=== PATIENT | male | born 1950 | race Caucasian/White ===

== ENCOUNTER → 2016-09-28 | Outpatient (CLI) | payer OTHER ==
--- NOTE | 2016-09-28 13:37 | DIAGNOSTIC IMAGING REPORT ---
LUMBAR SPINE W/O CONTRAST HISTORY: Pain INGUINAL PAIN, ARTHROPATHY LUMBAR FACET JOINT, THORACIC PAIN TECHNIQUE: Multiplanar multisequence MRI of the lumbar spine was performed without the use of contrast. COMPARISON: None. FINDINGS: For the purpose of the report the L5-S1 disc space will be located on axial image 23 of 25. Moderate degenerative disc change throughout. Vertebral body stature is unremarkable. L1-L2: No significant central canal or neural foraminal narrowing. L2-L3: No significant central canal or neural foraminal narrowing. L3-L4: Mild broad-based disc bulge. Mild impact anterior thecal sac. L4-L5: Mild broad-based disc bulge. Moderate narrowing of the neuroforamina bilaterally. No significant impact upon the thecal sac. L5-S1: Lateral disc bulges narrowing the right as well as left neuroforamina. No impact upon the thecal sac. IMPRESSION: 1. Bulging discs at L4-L5 and L5-S1 narrowing the neuroforamina bilaterally at both levels. 2. Mild broad-based central disc bulge L3-L4. 3. Moderate degenerative change of the posterior facets and elements. 4. No evidence for major disc herniation or significant component of spinal stenosis. The above report was generated using voice recognition software. It may contain grammatical, syntax or spelling errors. Electronically signed by: Edgar Wyatt M.D. 09/28/2016 1:36 PM Dictated Date/Time: 09/28/2016 1:31 PM
== END | disposition home or self-care (01) ==
LOC: C.MRIBC 12:38
PROVIDERS: ATTEND Physician Assistant Medical
DX: M46.96 Unspecified inflammatory spondylopathy, lumbar region (principal); R10.2 Pelvic and perineal pain; M99.79 Connective tissue and disc stenosis of intervertebral foramina of abdomen and other regions; M54.9 Dorsalgia, unspecified; M51.27 Other intervertebral disc displacement, lumbosacral region

== ENCOUNTER → 2016-10-28 | Outpatient (CLI) | payer OTHER ==
--- NOTE | 2016-10-28 13:51 | DIAGNOSTIC IMAGING REPORT ---
MRI THORACIC SPINE WITHOUT CLINICAL HISTORY: THORACIC BACK PAIN PRIOR STUDIES: None TECHNIQUE: MR scanning of the thoracic spine was performed using multiple pulse sequences. No gadolinium was administered. FINDINGS: The thoracic discs are unremarkable without evidence of herniation. Vertebral bodies are normal in height and alignment and bone marrow signal is unremarkable. The spinal cord is unremarkable. IMPRESSION: No significant abnormality is seen in the MR scan of the thoracic spine. Electronically signed by: Darryl Celis M.D. 10/28/2016 1:49 PM Dictated Date/Time: 10/28/2016 1:46 PM
== END | disposition home or self-care (01) ==
LOC: C.MRIBC 12:42
PROVIDERS: ATTEND Family Medicine
DX: M54.9 Dorsalgia, unspecified (principal)

== ENCOUNTER 2022-06-15 08:47 | Inpatient (IN) ==
--- NOTE | 2022-06-03 09:08 | Anesthesiology Consultation ---
Date of Service June 03, 2022 Assessment & Plan (1) Encounter for pre-operative examination: Chart Review Pt requiring admission post operatively. Plan for recheck with JORGE CARABALLO due to possibility that patient may have a roommate. OR aware. Blum order placed History Surgery Operation Date: 06/06/22 07:45 Proposed Procedures p L4-L5 Decompression and Fusion, Spinal Cord Monitoring - Ernesto Malone DO Height/Weight Height: 5 ft 9 in Weight: 83.007 kg Allergies Allergy/AdvReac Type Severity Reaction Status Date / Time No Known Allergies Allergy Verified 05/26/22 14:59 Medications Home Medications Medication Instructions Recorded Confirmed Last Taken lovastatin 40 mg tablet 40 mg PO QPM 05/26/22 05/26/22 Unknown Past Medical History Medical History Bulging lumbar disc High cholesterol History of colon polyps Loss of [facility] SUSPECTED TO BE RELATED TO BACK ISSUE CARDIO EVAL RECOMMENDED D/T SKIPPED BEATS AND HEART RATE IN 40'S ( PT REPORTS HIS HEART RATE NORMALLY RUNS IN THE 40'S) RECENT HEART MONITOR ORDERED THROUGH DR MAZARIEGOS'S OFFICE/PT DOES NOT KNOW RESULTS. UPCOMING CARDIO RON JUNE 02 2022. Skipped beats ONGOING FOR YRS/ASYMPTOMATIC/RECENT HEART MONITOR (UNKNOWN RESULTS AT THIS TIME) Past Family History Family History Other Family history of colon cancer in father Family history of colon cancer in mother Past Surgical History Surgical History History of cataract surgery R&L History of colonoscopy History of rotator cuff surgery RIGHT History of surgery FOR LEFT LEG FX /HARDWARE History of tonsillectomy Social History Smoking Status: Never smoker Do You Dip or Chew Tobacco: No alcohol intake frequency: holidays/special occasions only Hx Substance Use: No substance use type: does not use
--- NOTE | 2022-06-13 14:16 | Anesthesiology Consultation ---
Date of Service June 13, 2022 Assessment & Plan (1) Encounter for pre-operative examination: - awaiting cardiology clearance. - Case discussed in detail with Dr. Marquez who advised awaiting cardiology clearance, nothing additional needed at this time. - PCP pre-op evaluation 06/03/22: "...JANET for bradycardia...discharge summary suggests looking into sleep apnea but he declines testing for this because he refuses to wear a cpap...also suggested in D/C summary to have holter monitor and stress test to look for chorionotropic response...agreeable to holter monitor but not stress test...advised to obtain Holter monitor, stress test...sleep study to look for sleep apnea...only agreed to the holter monitor...feel that cardiology clearance should be obtained before undergoing surgery..." - COVID screening: Per employment consultant on 05/26/2022: Travel screen negative, no known COVID-19 positive contacts or current COVID-19 related symptoms in past 2 weeks. To surgeon's discretion if preop COVID testing is needed. Chart Review Chart Review: Pending: Refer to Additional Notes / Consult section and Patient NOT seen in Pre Admission Testing History Surgery Operation Date: 06/06/22 07:45 Proposed Procedures p L4-L5 Decompression and Fusion, Spinal Cord Monitoring - Ernesto Malone DO Operation Date: 06/15/22 10:35 Proposed Procedures p L4-L5 Decompression and Fusion, Spinal Cord Monitoring - Ernesto Malone DO Height/Weight Height: 5 ft 9 in Weight: 83.007 kg Allergies Allergy/AdvReac Type Severity Reaction Status Date / Time No Known Allergies Allergy Verified 05/26/22 14:59 Medications Home Medications Medication Instructions Recorded Confirmed Last Taken lovastatin 40 mg tablet 40 mg PO QPM 05/26/22 05/26/22 Unknown Past Medical History Medical History Bulging lumbar disc High cholesterol History of colon polyps Loss of balance ED VISIT FOR [facility], APRIL 29 2022 SUSPECTED TO BE RELATED TO BACK ISSUE CARDIO EVAL RECOMMENDED D/T SKIPPED BEATS AND HEART RATE IN 40'S ( PT REPORTS HIS HEART RATE NORMALLY RUNS IN THE 40'S) RECENT HEART MONITOR ORDERED THROUGH DR MAZARIEGOS'S OFFICE/PT DOES NOT KNOW RESULTS. UPCOMING CARDIO RON JUNE 02 2022. Skipped beats ONGOING FOR YRS/ASYMPTOMATIC/RECENT HEART MONITOR (UNKNOWN RESULTS AT THIS TIME) Past Family History Family History Other Family history of colon cancer in father Family history of colon cancer in mother Past Surgical History Surgical History History of cataract surgery R&L History of colonoscopy History of rotator cuff surgery RIGHT History of surgery FOR LEFT LEG FX /HARDWARE History of tonsillectomy Social History Smoking Status: Never smoker Do You Dip or Chew Tobacco: No alcohol intake frequency: holidays/special occasions only Hx Substance Use: No substance use type: does not use Testing Laboratory Results 05/30/2022 WBC: 5.9 H/H: 15/47 PLATELETS: 174 SODIUM: 136 POTASSIUM: 3.7 CHLORIDE: 104 CO2: 28 BUN: 16 CREATININE: 1 GLUCOSE: 123 PT: 12 PTT: 33 INR: 1 UA: yellow, clear, negative Other Testing Holter monitor 06/03/22 The prevailing rhythm is sinus bradycardia with the heart rate varying between 21 and 101 with an average of 50 bpm, longest recorded R-R interval is 3.7 seconds and coincides with the presence of sinus bradycardia with junctional escape at 6:22 in the morning Ventricular ectopy accounted for approximately 8% of the total beats monitored. These were in the form of isolated PVCs, couplets, rare short runs and runs of ventricular bigeminy and trigeminy Rare isolated PACs, very rare supraventricular couplets, a supraventricular quadruplet and a short run of supraventricular trigeminy
[~2022-06-15 08:47] MED LIST: ACETAMINOPHEN 500 MG TAB PO SCH; CeleBREX 200 MG CAP PO SCH; GABAPENTIN 300 MG CAP PO SCH; LR 15ML/HR IV SCH; ceFAZolin 2000MG 2,000 MG/15 ML SYR IV SCH
--- NOTE | 2022-06-15 09:28 | XRay Report ---
TWO VIEW CHEST CLINICAL HISTORY: Preoperative examination. FINDINGS: PA and lateral chest radiographs are obtained. No prior studies are available for compariso n at the time of dictation. The heart is enlarged noting atherosclerotic calcification of the thoraci c aorta. The pulmonary vasculature is noncongested. Subpleural reticulation is seen throughout both l ungs. Scarring/atelectasis is present at the lung bases. No airspace consolidation or pleural effusio n is identified. There is no pneumothorax. The skeletal structures are osteopenic. The bony thorax ap pears intact. IMPRESSION: 1. Cardiomegaly with no active disease in the chest. 2. Changes of chronic lung disease as above. Consider nonemergent follow-up with pulmonology. ACT 112: Negative or not required by law. Electronically signed by: Adam Martinez M.D. 06/15/2022 9:26 AM
[2022-06-15] MEDS ORDERED: ePHEDrine sulfate 50 MG/ML AMP IV PRN (09:49)
[2022-06-15] MEDS ORDERED: ATROPINE SULFATE 0.1 MG/ML 10ML SYR IV PRN (09:49)
[2022-06-15] MEDS ORDERED: ONDANSETRON INJ 2 MG/ML 2 ML VIAL IV PRN ×2 (09:49→13:41)
[2022-06-15] MEDS ORDERED: fentaNYL citrate PF 100 MCG/2 ML VIAL ONE (10:05)
--- NOTE | 2022-06-15 10:23 | History & Physical Bridge Note ---
Date of Service June 15, 2022 History & Physical Bridge Note I have examined the patient, reviewed the History & Physical and in the interval since the performance of the History & Physical I have noted the following changes of clinical significance: no changes noted
--- NOTE | 2022-06-15 10:24 | History & Physical Report ---
Date of Service June 15, 2022 Assessment & Plan (1) Lumbar disc herniation with radiculopathy: Plan: L4-L5 decompression and fusion History of Present Illness Chief Complaint: Right leg pain Primary Care Provider: Arvind Koenig This is a 71-year-old male who presents with worsening chronic consistent right leg pain and failing since course of nonoperative care is here for surgical intervention. Allergies Allergy/AdvReac Type Severity Reaction Status Date / Time No Known Allergies Allergy Verified 06/15/22 09:35 Home Medications Medication Instructions Recorded Confirmed Type lovastatin 40 mg tablet 40 mg PO QPM 05/26/22 06/15/22 History Past Med/Surg History Medical History Bulging lumbar disc High cholesterol History of colon polyps Loss of balance ED VISIT FOR [facility], APRIL 29 2022 SUSPECTED TO BE RELATED TO BACK ISSUE CARDIO EVAL RECOMMENDED D/T SKIPPED BEATS AND HEART RATE IN 40'S ( PT REPORTS HIS HEART RATE NORMALLY RUNS IN THE 40'S) RECENT HEART MONITOR ORDERED THROUGH DR KOENIG'S OFFICE/PT DOES NOT KNOW RESULTS. UPCOMING CARDIO RON JUNE 02 2022. Skipped beats ONGOING FOR YRS/ASYMPTOMATIC/RECENT HEART MONITOR (UNKNOWN RESULTS AT THIS TIME) Surgical History History of cataract surgery R&L History of colonoscopy History of rotator cuff surgery RIGHT History of surgery FOR LEFT LEG FX /HARDWARE History of tonsillectomy Family History Other Family history of colon cancer in father Family history of colon cancer in mother Social History Smoking Status: Never smoker Do You Dip or Chew Tobacco: No; Hx Substance Use: No Preferred Language: Pakistani Communication Ability: Effective Mold Inspector Required: No Beliefs That Will Affect Care: None Current Living Situation: Spouse and Family Current Living Situation Comment: , DAUGHTER AND GRANDAUGTHER Other Information That Helps Us Care for You: No Feels Safe at Home: Yes Assistive Devices: None Physical Exam Physical Exam: Patient is alert and oriented Heart regular rhythm Lungs clear
[2022-06-15] MEDS ORDERED: BUPIVACAINE/EPINEPHRINE 0.25% 1:200,000 30 ML VIAL ONE (10:34)
[2022-06-15] MEDS ORDERED: ceFAZolin 330 MG/ML 1 GM VIAL ONE (10:34)
[2022-06-15] MEDS ORDERED: LIDOCAINE 2% MPF LOCAL 5 ML VIAL ONE (11:08)
[2022-06-15] MEDS ORDERED: DEXAMETHASONE SOD INJ 4 MG/ML VIAL ONE (11:08)
[2022-06-15] MEDS ORDERED: PROPOFOL IV EMULSION 10 MG/ML 20 ML VIAL IV ONE (11:08)
[2022-06-15] MEDS ORDERED: ROCURONIUM BROMIDE 10 MG/ML 5 ML VIAL IV ONE ×4 (11:09→11:21)
[2022-06-15] MEDS ORDERED: FLOSEAL HEMOSTATIC MATRIX 10ML TOP ONE (11:46)
[2022-06-15] MEDS ORDERED: ePHEDrine sulfate 50 MG/ML AMP ONE (12:05)
--- NOTE | 2022-06-15 12:24 | Operative Report ---
Post Operative Report Pre & Post Diagnosis Operation Date: 06/15/22 10:35 Pre-Op Diagnosis: Lumbar disc herniation with radiculopathy Lumbar spinal stenosis with radiculopathy Post-Op Diagnosis: Same I identified the patient and participated in the time-out.: Yes Procedure Operation Date: 06/15/22 10:35 Actual Procedures #1 lumbar decompression bilateral medial facetectomies and foraminotomies L3-L4 L4-5 per #2 posterior spinal fusion L4-L5. #3 placement posterior instrumentation L4-L5. #4 interbody fusion L4-L5 #5 placement Spira 14 x 26 mm cage at L4-5. #6 placement locally harvested morselized autograft in the posterior gutters. #7 placement of I factor commended the test and interbody space and posterior lateral gutters. Surgeon Ernesto Malone, Planning Official Keyanna Barahona Estimated Blood Loss 150 Findings Consistent with Post-Op Diagnosis Specimens None Indications This is a 71-year-old male who presents above-mentioned diagnosis of failed course of nonoperative care is here for surgical invention. Description of Procedure Patient was met with identified informed consent obtained. Patient was then taken to the operative suite underwent patient placed in a prone position on the Carlos table on top of the Nicolas frame. All bony promises well-padded eyes inspected to ensure no external pressure placed upon the. This point the lumbar spine was prepped and draped in a sterile fashion. Sharp dissection with the assistance of Bovie cautery was formed down to and exposing the lamina transverse processes of L4-L5 bilaterally. From caudal to cephalad fashion complete laminectomy of L4 partial laminectomy of L3 was performed including complete facetectomy at L4-5 on the right with evidence of significant foraminal stenosis and bony osteophytes as well as disc protrusion within the foramen. After complete decompression pedicle screws were placed in L4 and L5 bilaterally with assistance of fluoroscopy and appropriate sized charles placed. By way of a trans foraminal approach on the right a complete discectomy was performed endplates curetted to subcortical bleeding bone and a 14 x 26 mm Spira cage with I factor tapped in position. The rods were then locked in final position bilaterally. The transverse processes of L4-L5 burred to subcortically bone. I factor amount of the test and locally harvested morselized autograft placed in the posterior gutters. 15 round COREY drain inserted. The incision was then closed with 1 Vicryl the fascia 2-0 Vicryl subcutaneously and 4 Monocryl for final skin closure. Steri-Strips sterile dressings placed. Patient awakened and taken to PACU stable condition. Please note spinal cord monitoring was uti lized at the procedure no changes noted. Lastly Keyanna Barahona was present at the entire procedure and all the patient positioning complex portions of the surgery and final skin closure. I attest to the content of the Intraoperative Record and any orders documented therein. Any exceptions are noted below.
[2022-06-15] MEDS ORDERED: GLYCOPYRROLATE 0.2 MG/ML VIAL ONE ×2 (12:26)
[2022-06-15] MEDS ORDERED: NEOSTIGMINE METHYLSULFATE 1 MG/ML 10ML VIAL ONE (12:26)
[2022-06-15] MEDS: fentaNYL citrate PF 100 MCG/2 ML VIAL IV PRN ×2 (12:57→13:02)
--- NOTE | 2022-06-15 13:20 | Anesthesiology Progress Note ---
Date of Service June 15, 2022 Anesthesia Post Procedure Vital Signs Vital Signs: Temp Pulse Resp BP Pulse Ox O2 Del Method O2 Flow Rate 06/15/22 13:15 66 15 131/82 99 Nasal Cannula 2 06/15/22 13:05 97.3 F L 55 L 12 159/88 H 100 Nasal Cannula 2 06/15/22 12:55 97.3 F L 59 L 14 140/80 98 Nasal Cannula 2 06/15/22 12:45 97.3 F L 69 18 136/80 100 Nasal Cannula 3 06/15/22 12:37 97.3 F L 57 L 12 157/93 H 99 Nasal Cannula 3 06/15/22 09:20 97.7 F 61 18 166/69 H 98 Room Air Pain Intensity Lower Back: Pain Intensity: 2 Transfer of Care Handoff Completed per policy Notes Mental Status: alert / awake / arousable and participated in evaluation Patient Amnestic to Procedure: Yes Nausea / Vomiting: adequately controlled Pain: adequately controlled Airway Patency, RR, SpO2: stable & adequate BP & HR: stable & adequate Hydration State: stable & adequate Anesthetic Complications: no major complications apparent and Pt Satisfied with anesthetic care
[2022-06-15] MEDS ORDERED: HYDROmorphone INJ 0.5 MG/0.5 ML SYR IV PRN (13:41)
[2022-06-15] MEDS ORDERED: ACETAMINOPHEN 500 MG TAB PO PRN (13:41)
[2022-06-15] MEDS ORDERED: METOCLOPRAMIDE HCL INJ 5 MG/ML 2 ML VIAL IV PRN (13:41)
[2022-06-15] MEDS ORDERED: LORazepam 2 MG/1 ML VIAL IV PRN (13:41)
[2022-06-15] MEDS ORDERED: MAGNESIUM HYDROXIDE SUSP 30 ML UDC PO PRN (13:41)
[2022-06-15] MEDS ORDERED: FAMOTIDINE 20 MG TAB PO PRN (13:41)
[2022-06-15] MEDS ORDERED: NALOXONE HCL 0.4 MG/1 ML VIAL/CARP IV PRN (13:41)
[2022-06-15] MEDS ORDERED: DO NOT ADMINISTER FLU VACCINE PRN (13:41)
[2022-06-15] MEDS ORDERED: hydrOXYzine HCl 25 MG TAB PO PRN (13:41)
[2022-06-15] MEDS ORDERED: DO NOT ADMINISTER PNEUMOCOCCAL VACCINE PRN (13:41)
[2022-06-15] MEDS ORDERED: LORazepam 0.5 MG TAB PO PRN (13:41)
[2022-06-15] MEDS ORDERED: diphenhydrAMINE Capsule 25 MG CAP PO PRN (13:41)
[2022-06-15] MEDS ORDERED: PROMETHAZINE HCL 12.5 MG in SODIUM CHLORIDE 0.9% 50 ML IV PRN (13:41)
[2022-06-15] MEDS ORDERED: ONDANSETRON 4 MG OD TAB PO PRN (13:41)
[2022-06-15] MEDS ORDERED: ACETAMINOPHEN 1,000 MG/100 ML VIAL IV PRN (13:41)
[2022-06-15] MEDS ORDERED: bisacodyL 10 MG SUPP PR PRN (13:41)
[2022-06-15] MEDS ORDERED: SOD PHOSPHATE/SOD BIPHOSPHATE ENEMA 132 ML BTL PR PRN (13:41)
[2022-06-15] MEDS ORDERED: SODIUM CHLORIDE 0.9% 1000ML 1,000 ML IV SCH (13:41)
[2022-06-15] MEDS ORDERED: traMADol HCL 50 MG TABLET PO PRN (13:41)
--- NOTE | 2022-06-15 13:50 | Fluoroscopy Report ---
FL lumbar spine 2-3V CLINICAL HISTORY: L4-L5 DECOMPRESSION AND FUSION COMPARISON STUDY: None. FLUOROSCOPY TIME: 25 seconds FLUOROSCOPY IMAGES: 2 Ka,r: 23.4 mGy FINDINGS: Posterior decompression and fusion at L4-L5 with pedicle screws and rods. A disc spacer is noted. The hardware appears intact. IMPRESSION: Fluoroscopic assistance as above. ACT 112: Negative or not required by law. Electronically signed by: Titi Gaming M.D. 06/15/2022 1:49 PM
[2022-06-15] MEDS: oxyCODONE HCL IR 5 MG TAB (IMMEDIATE RELEASE) PO PRN (14:19)
[2022-06-15] MEDS: LACTATED RINGER'S 1,000 ML IV SCH ×2 (14:24→20:18)
[2022-06-15] MEDS: HYDROmorphone INJ 1 MG/ML SYRINGE IV PRN (15:15)
--- NOTE | 2022-06-15 15:31 | Consultation ---
Date of Consultation June 15, 2022 Assessment & Plan (1) Lumbar disc herniation with radiculopathy: (2) HLD (hyperlipidemia): (3) Bradycardia: Plan 71-year-old male who presented to the [facility] for a planned surgical procedure decompression and fusion under the care of Dr. Malone after failed conservative measures. Additional past medical history includes HLD. Patient receives all health care through the [facility]. Lumbar disc herniation with radiculopathy: POD# 0 s/p decompression and fusion surgery with Dr. Malone. EBL 150mL Monitor H&H; no baseline labs for comparison. CBC ordered for AM Per ortho for pain control, wound care, anticoagulation and activities. continue incentive spirometry PT/OT when appropriate HLD: Takes Atorvastatin; continue Bradycardia: Recent admission 05/01-05/03 at [facility] for bradycardia Holter monitor planned as OPT They suspect SAFIA related; will obtain nocturnal oximetry study while here Disposition: PCP: [facility] Code Status: Full Code VTE Prophylaxis: SCDS and TEDS per admitting surgical team I spent a total of 34 minutes coordinating, documenting, and providing care for this patient excluding time spent in the performance of separately billed services. All of the aforementioned completed while collaborating with the assigned attending physician for a full treatment plan. Please see their addendum for further details. Supervising Physician Co-Signing Physician Notes Patient is a 71-year-old male with history of hyperlipidemia, obstructive sleep apnea currently not using CPAP, lumbar spinal stenosis with radiculopathy and no other significant past medical history was consulted for postop medical management. Patient is doing well postoperatively. Denies any chest pain, dyspnea, dizziness, nausea, abdominal pain. Also denies any significant pain at surgical site. Please review HPI for complete details. On exam patient is moderately built and nourished, no apparent distress, normocephalic atraumatic, EOMI, normal breath sounds, clear to auscultation, S1-S2, no murmur, no pedal edema, abdomen soft, nontender, normal bowel sounds, alert, awake, oriented, grossly no focal deficits,back+ surgical site in dressing, drain. Lumbar disc herniation with radiculopathy and lumbar spinal stenosis with radiculopathy S/P lumbar surgery by Dr. Malone. Pain control, DVT prophylaxis, activity as per primary team. Monitor for postop anemia. Bowel regimen to prevent constipat ion. Will obtain nocturnal oximetry study given history of bradycardia, obstructive sleep apnea. Recommended sleep study as outpatient. I personally reviewed the record. Patient is interviewed and examined at bedside. Patient's care is coordinated with [facility]. Please refer to the documentation above for details of patient's presentation and for discussion of other issues. History of Present Illness Requesting Physician: Dr. Malone Reason for Consultation: post-operative medical management Attending Physician: Ernesto Malone, History of Present Illness Mr. Ratliff is a 71 year old male that presented to the [facility] to undergo an elective surgical decompression and fusion under the care of Dr. Malone after failed conservative management for disc herniation L4-L5. Patient has a PMH that includes HLD. Pt typically receives his care within the [facility] and was medically cleared for surgery through their system. Pt denies JORDAN, dizziness, SOB, CP, palpitations, N/V/D, numbness or tingling in extremities. Patient had just received 1 dose of Dilaudid prior to my examination. Patient is accompanied by his at bedside. Patient is AAOx4 and able to answer questions appropriately but is drowsy. Patient has tolerated water well and is advancing his diet. Patient denies any numbness and tingling in lower extremities. Patient has COREY drain x1 fransisco red blood output. EBL 150 mL no baseline hemoglobin from outpatient records to review will trend CBC in a.m. as ordered. Pt is normotensive and slightly bradycardic HR 58. This is not new for him and he is asymptomatic. EKG in AM. He had a recent admission at [facility] from 05/01-05/03 for evaluation of bradycardia. He was advised to proceed with further evaluation for sleep apnea and holter monitor. Orthopa[facility] Hospitalist Service greatly appreciates this consultation. We are available 12/09 for further questions or assistance. Please see A/P for further details. Allergies Allergy/AdvReac Type Severity Reaction Status Date / Time No Known Allergies Allergy Verified 06/15/22 09:35 Home Medications Medication Instructions Recorded Confirmed Type lovastatin 40 mg tablet 40 mg PO QPM 05/26/22 06/15/22 History oxycodone 5 mg tablet 5 mg PO DAILY PRN pain #30 tabs 06/15/22 06/15/22 Rx tramadol 50 mg tablet 50 mg PO Q6H PRN pain, moderate 06/15/22 06/15/22 Rx #30 tabs Patient History Medical History (Updated 06/15/22 @ 15:54 by NIURKA Piña) Bradycardia Bulging lumbar disc High cholesterol History of colon polyps HLD (hyperlipidemia) Loss of balance [facility] SUSPECTED TO BE RELATED TO BACK ISSUE CARDIO EVAL RECOMMENDED D/T SKIPPED BEATS AND HEART RATE IN 40'S ( PT REPORTS HIS HEART RATE NORMALLY RUNS IN THE 40'S) RECENT HEART MONITOR ORDERED THROUGH DR MAZARIEGOS'S OFFICE/PT DOES NOT KNOW RESULTS. UPCOMING CARDIO RON JUNE 02 2022. 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: No Beliefs That Will Affect Care: None Current Living Situation: Spouse and Family Current Living Situation Comment: , DAUGHTER AND GRANDAUGTHER Other Information That Helps Us Care for You: No Feels Safe at Home: Yes Assistive Devices: None Review of Systems Review of Systems: Neuro: (-) Falls, trauma, slurred speech HEENT: (-) JORDAN, dizziness, dysphagia, visual or auditory changes CV: (-) CP, palpitations, swelling Resp: (-) SOB GI: (-) appetite changes, N/V/D, bowel changes : (-) urinary changes Skin: (-) rashes Psych: (-) anxiety, depression Physical Exam 2 Physical Exam: Neuro: AAOx4, PERRLA, no aphagia, memory changes, CNII-XII grossly intact HEENT: head normocephalic, moist mucus membranes CV: S1/S2, (-) M/G/R, (-) edema, cap refill < 3 seconds Resp: Lungs CTA in all wright. On RA GI: Abdomen S/NT/ND, Ax4 bowel sounds, (-) CVA tenderness Musculoskeletal: 5/5 B/L UE strength, 5/5 B/L LE strength. No gait disturbance Skin: (-) rashes , (-) erythema. Psych: euthymic mood Results & Data Vital Signs (Past 12 Hours) Vital Signs Temp Pulse Pulse Resp BP BP Pulse Ox 06/15/22 14:40 37.0 C 58 L 16 131/80 98 06/15/22 14:13 36.5 C 56 L 18 144/79 H 98 06/15/22 13:41 36 C L 56 L 18 147/70 H 98 06/15/22 13:30 36.3 C L 55 L 18 138/82 98 06/15/22 13:20 36.3 C L 59 L 19 125/84 98 06/15/22 13:15 66 15 131/82 99 06/15/22 13:05 36.3 C L 55 L 12 159/88 H 100 06/15/22 12:55 36.3 C L 59 L 14 140/80 98 06/15/22 12:45 36.3 C L 69 18 136/80 100 06/15/22 12:37 36.3 C L 57 L 12 157/93 H 99 06/15/22 09:20 36.5 C 61 18 166/69 H 98 O2 Del Method O2 Flow Rate 06/15/22 14:40 Room Air 06/15/22 14:13 Room Air 06/15/22 13:41 Room Air 06/15/22 13:30 Nasal Cannula 2 06/15/22 13:20 Nasal Cannula 2 06/15/22 13:15 Nasal Cannula 2 06/15/22 13:05 Nasal Cannula 2 06/15/22 12:55 Nasal Cannula 2 06/15/22 12:45 Nasal Cannula 3 06/15/22 12:37 Nasal Cannula 3 06/15/22 09:20 Room Air Diagnostic Findings Chest X-Ray 06/15/22 05:00 TWO VIEW CHEST CLINICAL HISTORY: Preoperative examination. FINDINGS: PA and lateral chest radiographs are obtained. No prior studies are available for comparison at the time of dictation. The heart is enlarged noting atherosclerotic calcification of the thoracic aorta. The pulmonary vasculature is noncongested. Subpleural reticulation is seen throughout both lungs. Scarring/atelectasis is present at the lung bases. No airspace consolidation or pleural effusion is identified. There is no pneumothorax. The skeletal structures are osteopenic. The bony thorax appears intact. IMPRESSION: 1. Cardiomegaly with no active disease in the chest. 2. Changes of chronic lung disease as above. Consider nonemergent follow-up with pulmonology. ACT 112: Negative or not required by law. Electronically signed by: Adam Martinez M.D. 06/15/2022 9:26 AM Lumbar Spine X-Ray 06/15/22 10:35 FL lumbar spine 2-3V CLINICAL HISTORY: L4-L5 DECOMPRESSION AND FUSION COMPARISON STUDY: None. FLUOROSCOPY TIME: 25 seconds FLUOROSCOPY IMAGES: 2 Ka,r: 23.4 mGy FINDINGS: Posterior decompression and fusion at L4-L5 with pedicle screws and rods. A disc spacer is noted. The hardware appears intact. IMPRESSION: Fluoroscopic assistance as above. ACT 112: Negative or not required by law. Electronically signed by: Titi Gaming M.D. 06/15/2022 1:49 PM
[2022-06-15] MEDS: ceFAZolin 2000MG 2,000 MG/15 ML SYR IV SCH (18:18)
[2022-06-15] MEDS: DOCUSATE SODIUM/SENNA 50/8.6MG TAB PO SCH (20:19)
[2022-06-15] MEDS: LOVASTATIN 20 MG TAB PO SCH (20:19)
[2022-06-15] MEDS ORDERED: COUGH DROP (SUGAR FREE) LOZ 24 LOZ/1 BOX BUCCAL ONE (20:23)
[2022-06-16] MEDS: ceFAZolin 2000MG 2,000 MG/15 ML SYR IV SCH (01:40)
[2022-06-16] MEDS: LACTATED RINGER'S 1,000 ML IV SCH (03:15)
[2022-06-16] MEDS: oxyCODONE HCL IR 5 MG TAB (IMMEDIATE RELEASE) PO PRN ×2 (03:29→14:37)
[2022-06-16] MEDS: HYDROmorphone INJ 1 MG/ML SYRINGE IV PRN (05:51)
[2022-06-16] MEDS: POLYETHYLENE (MIRALAX) 17 GM PACK PO SCH ×4 (05:54→22:58)
[2022-06-16] MEDS: ALUMINUM/MAGNESIUM SUSP 30 ML UDC PO PRN ×2 (06:16→19:41)
[2022-06-16 07:38] LABS: Basophils # (auto) 0.01 K/uL (0-0.2); Basophils % (auto) 0.1 %; Hematocrit (blood only) 41.1 % (42.0-52.0); Hemoglobin 14.3 g/dl (14.0-18.0); Immature Granulocytes # (auto) 0.08 K/uL (0.01-0.20); Immature Granulocytes % (auto) 0.5 %; Lymphocytes # (auto) 0.79 K/uL (1.2-3.4); Lymphocytes % (auto) 4.7 %; Mean Corpuscular Hemoglobin 31.2 pg (25.0-34.0); Mean Corpuscular Hgb Conc 34.8 g/dL (32.0-36.0); Mean Corpuscular Volume 89.7 fL (80.0-100.0); Mean Platelet Volume 11.9 fL (9.4-12.4); Monocytes # (auto) 1.13 K/uL (0.11-0.59); Monocytes % (auto) 6.8 %; Neutrophils # (auto) 14.73 K/uL (1.40-6.50); Neutrophils % (auto) 87.9 %; Platelet Count 176 K/uL (130-400); RDW Coefficient of Variation 12.6 % (11.5-14.5); RDW Standard Deviation 41.6 fL (36.4-46.3); Red Blood Count 4.58 M/uL (4.70-6.10); White Blood Count 16.74 K/ul (4.8-10.8)
[2022-06-16 07:50] LABS: BUN Creatinine Ratio 21.1 (10-20); Calcium 9.3 mg/dl (8.6-10.3); Creatinine Clr Calc Pharmacy 74.2 ml/min; Est GFR (African American) 98.5 ml/min; Potassium 4.2 mmol/L (3.5-5.1)
[2022-06-16] MEDS: dexAMETHasone 6 MG in SYRINGE 0 ML IV SCH (08:25)
--- NOTE | 2022-06-16 09:02 | Orthopedic Progress Note ---
Date of Service June 16, 2022 Assessment & Plan (1) Lumbar disc herniation with radiculopathy: Plan: We will initiate physical therapy monitor his COREY output hopefully discharge home next few days. Admission and Anticipated Discharge Date Admission Date: June 15, 2022 Subjective Back pain controlled leg pain markedly improved Physical Exam Physical Exam: Patient is constricted testing. Appears comfortable. Results & Data Vital Signs (Past 12 Hours) Vital Signs Temp Pulse Pulse Pulse Resp BP BP 06/16/22 07:02 36.9 C 64 16 130/76 06/16/22 03:00 36.7 C 59 L 16 117/64 06/15/22 23:42 36.6 C 61 18 132/74 06/15/22 22:45 51 L Pulse Ox Pulse Ox O2 Del Method O2 Del Method 06/16/22 07:02 96 Room Air 06/16/22 03:00 97 Room Air 06/15/22 23:42 97 Room Air 06/15/22 22:45 97 Room Air
--- NOTE | 2022-06-16 14:22 | Hospitalist Progress Note ---
Date of Service June 16, 2022 Assessment & Plan (1) Lumbar disc herniation with radiculopathy: (2) HLD (hyperlipidemia): (3) Bradycardia: Plan 71-year-old male who presented to the [facility] for a planned surgical procedure decompression and fusion under the care of Dr. Malone after failed conservative measures. Additional past medical history includes HLD. Patient receives all health care through the [facility]. Lumbar disc herniation with radiculopathy: POD# 1 s/p decompression and fusion surgery with Dr. Malone. EBL 150mL Hemoglobin is 14.3. Per ortho for pain control, wound care, anticoagulation and activities. continue incentive spirometry PT/OT when appropriate HLD: Takes Atorvastatin; continue Bradycardia: Recent admission 05/01-05/03 at [facility] for bradycardia Holter monitor planned as OPT EKG on 06/07 personally reviewed; sinus rhythm with PVCs. Disposition: PCP: [facility] Code Status: Full Code VTE Prophylaxis: SCDS and TEDS per admitting surgical team Please note the above document was generated using voice recognition software. It may contain grammatical, syntax or spelling errors. Any formal questions or concerns about the content, text or information contained within the body of this dictation should be directly addressed to the provider for clarification Admission and Anticipated Discharge Date Admission Date: June 15, 2022 Subjective Patient seen and examined at bedside. He is sitting up at the side of the bed; not in distress. He reports that pain is well controlled. Review of Systems Review of Systems: All systems reviewed & are unremarkable except as noted in Subjective Physical Exam Physical Exam: Constitutional: WD/WN, vitals as above, NAD, sitting up in bed, pleasant, conversing easily Respiratory: normal respiratory effort, lungs clear to auscultation, no wheeze, rales, rhonchi. Normal insp/exp effort, no accessory muscle use Cardiovascular: RRR, no murmur, no edema Vessels: no JVD or carotid bruit Chest: normal inspection of chest Abdomen: normal bowel sounds, soft, nontender, no hepatosplenomegaly Musculoskeletal: no cyanosis or clubbing, extremities motor strength 5/5. COREY drain in place. Skin: no rashes, warm and dry normal turgor Neurologic: PERRL, EOMI, accommodation nl, no face palsy, no dysarthria CN's II- XI intact bilaterally and moves all extremities Psychiatric: A+Ox3, euthymic affect Lymphatic: no cervical or axillary lymphadenopathy : deferred Results & Data Results & Data Vital Signs (Past 12 Hours) Vital Signs Temp Pulse Pulse Resp BP BP Pulse Ox 06/16/22 11:35 36.5 C 59 L 18 122/70 98 06/16/22 07:02 36.9 C 64 16 130/76 96 06/16/22 03:00 36.7 C 59 L 16 117/64 97 O2 Del Method 06/16/22 11:35 Room Air 06/16/22 07:02 Room Air 06/16/22 03:00 Room Air Laboratory Results Laboratory Results WBC 16.74 K/ul (4.8-10.8) H 06/16/22 06:35 RBC 4.58 M/uL (4.70-6.10) L 06/16/22 06:35 Hgb 14.3 g/dl (14.0-18.0) 06/16/22 06:35 Hct 41.1 % (42.0-52.0) L 06/16/22 06:35 MCV 89.7 fL (80.0-100.0) 06/16/22 06:35 MCH 31.2 pg (25.0-34.0) 06/16/22 06:35 MCHC 34.8 g/dL (32.0-36.0) 06/16/22 06:35 RDW Std Deviation 41.6 fL (36.4-46.3) 06/16/22 06:35 RDW Coeff of Baron 12.6 % (11.5-14.5) 06/16/22 06:35 Plt Count 176 K/uL (130-400) 06/16/22 06:35 MPV 11.9 fL (9.4-12.4) 06/16/22 06:35 Immature Gran % (Auto) 0.5 % 06/16/22 06:35 Neut % (Auto) 87.9 % 06/16/22 06:35 Lymph % (Auto) 4.7 % 06/16/22 06:35 Starke % (Auto) 6.8 % 06/16/22 06:35 Eos % (Auto) 0.0 % 06/16/22 06:35 Baso % (Auto) 0.1 % 06/16/22 06:35 Neut # (Auto) 14.73 K/uL (1.40-6.50) H 06/16/22 06:35 Lymph # (Auto) 0.79 K/uL (1.2-3.4) L 06/16/22 06:35 Starke # (Auto) 1.13 K/uL (0.11-0.59) H 06/16/22 06:35 Eos # (Auto) 0.00 K/uL (0-0.50) 06/16/22 06:35 Baso # (Auto) 0.01 K/uL (0-0.2) 06/16/22 06:35 Immature Gran # (Auto) 0.08 K/uL (0.01-0.20) 06/16/22 06:35 Sodium 136 mmol/L (136-145) 06/16/22 06:35 Potassium 4.2 mmol/L (3.5-5.1) 06/16/22 06:35 Chloride 100 mmol/L (98-107) 06/16/22 06:35 Carbon Dioxide 25 mmol/L (21-32) 06/16/22 06:35 Anion Gap 11 (3-11) 06/16/22 06:35 BUN 19 mg/dl (6-23) 06/16/22 06:35 Creatinine 0.90 mg/dl (0.6-1.4) 06/16/22 06:35 Est Cr Clr Drug Dosing 74.2 ml/min 06/16/22 06:35 Est GFR ( Amer) 98.5 ml/min 06/16/22 06:35 Est GFR (Non-Af Amer) 85.0 ml/min 06/16/22 06:35 BUN/Creatinine Ratio 21.1 (10-20) H 06/16/22 06:35 Glucose 115 mg/dl (70-99(Fasting)) H 06/16/22 06:35 Calcium 9.3 mg/dl (8.6-10.3) 06/16/22 06:35 SARS-CoV-2, RNA, NAAT NEGATIVE (NEGATIVE) 06/15/22 09:12 Blood Type A Positive 06/15/22 09:13 Antibody Screen NEGATIVE 06/15/22 09:13 Impressions Chest X-Ray 06/15/22 05:00 TWO VIEW CHEST CLINICAL HISTORY: Preoperative examination. FINDINGS: PA and lateral chest radiographs are obtained. No prior studies are available for comparison at the time of dictation. The heart is enlarged noting atherosclerotic calcification of the thoracic aorta. The pulmonary vasculature is noncongested. Subpleural reticulation is seen throughout both lungs. Scarring/atelectasis is present at the lung bases. No airspace consolidation or pleural effusion is identified. There is no pneumothorax. The skeletal structures are osteopenic. The bony thorax appears intact. IMPRESSION: 1. Cardiomegaly with no active disease in the chest. 2. Changes of chronic lung disease as above. Consider nonemergent follow-up with pulmonology. ACT 112: Negative or not required by law. Electronically signed by: Adam Martinez M.D. 06/15/2022 9:26 AM Lumbar Spine X-Ray 06/15/22 10:35 FL lumbar spine 2-3V CLINICAL HISTORY: L4-L5 DECOMPRESSION AND FUSION COMPARISON STUDY: None. FLUOROSCOPY TIME: 25 seconds FLUOROSCOPY IMAGES: 2 Ka,r: 23.4 mGy FINDINGS: Posterior decompression and fusion at L4-L5 with pedicle screws and rods. A disc spacer is noted. The hardware appears intact. IMPRESSION: Fluoroscopic assistance as above. ACT 112: Negative or not required by law. Electronically signed by: Titi Gaming M.D. 06/15/2022 1:49 PM
[2022-06-16] MEDS: LOVASTATIN 20 MG TAB PO SCH (21:32)
[2022-06-16] MEDS: DOCUSATE SODIUM/SENNA 50/8.6MG TAB PO SCH (21:33)
[2022-06-17] MEDS: POLYETHYLENE (MIRALAX) 17 GM PACK PO SCH (05:51)
[2022-06-17] MEDS: oxyCODONE HCL IR 5 MG TAB (IMMEDIATE RELEASE) PO PRN (05:51)
[2022-06-17] MEDS: dexAMETHasone 6 MG in SYRINGE 0 ML IV SCH (07:26)
--- NOTE | 2022-06-17 11:06 | Discharge Summary ---
Date of Service June 17, 2022 Admission HPI Per Admitting Provider This is a 71-year-old male who presents with worsening chronic consistent right leg pain and failing since course of nonoperative care is here for surgical intervention. Principal Diagnosis Lumbar spinal stenosis with radiculopathy Discharge Data Allergies Allergy/AdvReac Type Severity Reaction Status Date / Time No Known Allergies Allergy Verified 06/15/22 09:35 Consultations 06/15/22 13:41 Consult Hospitalist Routine Procedures Performed Operation Date: 06/15/22 10:35 Actual Procedures p L4-L5 Decompression and Fusion, Spinal Cord Monitoring(Not Applicable) - Ernesto Malone DO Ordered Studies 06/15/22 10:35 FL lumbar spine 2-3V Routine Hospital Course (1) Lumbar disc herniation with radiculopathy: Patient went lumbar decompression fusion tolerated this well was taken to the orthopedic for postoperative. Postop day 1 is up and ambulating progress postop day #2. Excellent strength testing. COREY drain decreasing probably. Pain well controlled. Subsidy discharged home. Discharge orders instructions found in chart for further review. Total Time Total Time Spent Total Time Spent (In Minutes): 20 minutes Discharge Plan Discharge Items Patient Disposition: Home - Self-Care Reason For Visit: Spinal Stenosis, Lumbar Region without Neurogenic Discharge Diagnosis: Lumbar spinal stenosis with radiculopathy Activity: As commented below Non-emergency contact: Primary Care Provider Call non-emergency contact if: you have any medication questions Follow-up/Referrals: Arvind Koenig M.D. [Primary Care Provider] - Diet: Regular Addtl Attending Provider Instructions: ACTIVITY RECOMMENDATIONS: SELF CARE INSTRUCTIONS AFTER THORACIC/LUMBAR FUSIONS 1. You may walk to your tolerance. It is good exercise for your legs and back. Expect some back and intermittent leg aches and pains. 2. You may perform "counter-top" level activities (make a sandwich, patel with a project, etc.). 3. No bending or lifting of more than 10 pounds or back twisting of any nature (roll like a log when turning in bed). 4. You may ride in a car for 20-30 minutes at a time. No driving until after your first visit with your doctor. 5. Frequent changes of position and restricting sitting to 30 minutes at a time will help limit the amount of back spasms and stiffness you may experience. 6. You may discontinue the use of ambulatory aids (cane, crutches, etc.) once your strength and confidence allow. 7. You may assembler for puller over machine the shower and let water strike your incision when you arrive home at least once daily. Do not take a tub bath, sit in a hot tub or go into a swimming pool until after your first recheck in the office. SPECIAL CARE INSTRUCTIONS: VERY IMPORTANT TO READ AND REVIEW A. Your surgical incision has been closed with a cosmetic suture under the skin that will dissolve in about 6 weeks. In 14 days, you can use a pair of clean scissors and cut the suture that is left outside of the skin at the ends of your incision. 1. The small skin tapes can be removed 7 days after surgery if they have not fallen off by that point. 2. You may keep the wound open to air as much as possible to promote healing after post-op day number 5 unless told otherwise by your doctor. 3. If you think the wound looks like it is becoming infected (redness or worsening drainage) and/or you are experiencing fever, chill or worsening back pain and muscle spasms, contact the office so that we may evaluate you as soon as possible. B. Complications are uncommon, but please contact us if you have any signs or symptoms of: 1. wound infection (fever higher than 102.5 degrees F, redness, separation of wound, drainage, or increasing pain from the incision) 2. blood clots in legs (pain, swelling, redness and warmth in legs) 3. urinary tract infection (fever higher than 102.5 degrees F, burning upon urination or increased frequency of urination) 4. nerve problems (inability to walk on your toes or heels, numbness, loss of bowel or bladder control) 5. any other symptoms that concern you C. Please call the office at if you have any concerns or questions about your operation or recovery. D. No smoking! Smoking drastically decreases the chance of a solid fusion. E. Do not take any anti-inflammatory medications (Indocin, Advil, Motrin, Aspirin, Naprosyn, etc.) as these may inhibit the chance of a solid fusion. Tylenol is okay to take for pain. MANAGING PAIN AFTER SPINAL SURGERY 1. Narcotic medication is intended for short-term use and will be provided for surgical pain. Surgical pain usually lasts for a period of 4-6 weeks. Narcotic medication includes Percocet, Vicodin, Darvocet, Tylenol #3 or Lortab. 2. Longer-term pain is more appropriately treated with non-narcotic medication such as Tylenol ES. 3. Muscle spasm is not appropriately treated with narcotics. Muscle relaxers such as Soma, Flexeril or Skelaxin can be used along with Tylenol ES. 4. Remember that we all live with some "aches and pains". This is not unusual or uncommon after an injury or as we get older. a. Back pain is expected and may include muscle spasms for 4 to 6 weeks after surgery. The pain should gradually improve. If the pain worsens for no apparent reason, please contact the office. b. Intermittent leg pain may also be experienced and should not be concerned about unless it worsens for no apparent reason. If so, please contact the office. 5. We will provide appropriate medication within the normal guidelines of their prescribed use. We will also be very cautious and aware of potential abuse and extended duration of patients' medication needs. a. Pain medications are for your comfort and to assist with sleep and rest so that the tissue can heal. They are not provided in order to return to normal activity and should not be used through the day. To do so or worsening pain at night can result from ongoing tissue damage and development of tolerance to the prescribed medicine. 6. Please allow 2-3 days to process refills. Prescriptions will not be mailed but must be picked up at the office. FOLLOW UP VISIT: Keep your scheduled follow-up appointment. Any questions, please call the office at . Pending Studies at Discharge: No Stand-Alone Forms: [facility] [employer] Smoking Cessation Medications and DC Order Prescriptions: New tramadol 50 mg tablet 50 mg PO Q6H PRN (Reason: pain, moderate) Qty: 30 0RF oxycodone 5 mg tablet 5 mg PO DAILY PRN (Reason: pain) Qty: 30 0RF Continued lovastatin 40 mg Tablet 40 mg PO QPM Discharge Orders: Discharge Order (Routine); Ordered 06/17/22 Ordered By: Ernesto Malone Admission Data Admit Date/Time: 06/15/22 12:30 Attending Provider: Ernesto Malone Admit Provider: Ernesto Malone Primary Care Provider: Arvind Koenig. Other Providers: Therese Moss ; Mamadou Strong ; Nancy Loera
[2022-06-17] MEDS: ALUMINUM/MAGNESIUM SUSP 30 ML UDC PO PRN (11:25)
--- NOTE | 2022-06-17 13:04 | Hospitalist Progress Note ---
Date of Service June 17, 2022 Assessment & Plan (1) Lumbar disc herniation with radiculopathy: (2) HLD (hyperlipidemia): (3) Bradycardia: Plan 71-year-old male who presented to the [facility] for a planned surgical procedure decompression and fusion under the care of Dr. Malone after failed conservative measures. Additional past medical history includes HLD. Patient receives all health care through the [facility]. Lumbar disc herniation with radiculopathy: POD# 2 s/p decompression and fusion surgery with Dr. Malone. EBL 150mL Hemoglobin is 14.3. Per ortho for pain control, wound care, anticoagulation and activities. continue incentive spirometry PT/OT when appropriate HLD: Takes Atorvastatin; continue Bradycardia: Recent admission 05/01-05/03 at [facility] for bradycardia Holter monitor planned as OPT EKG on 06/07 personally reviewed; sinus rhythm with PVCs. Disposition: PCP: [facility] Code Status: Full Code VTE Prophylaxis: SCDS and TEDS per admitting surgical team Pt to d/c home today 30 minutes spent with patient, viewing previous labs, med rec and prior hx. pt seen in collaboration with Dr. Strong Admission and Anticipated Discharge Date Admission Date: June 15, 2022 Supervising Physician Co-Signing Physician Notes Patient seen and examined independently. Discussed with above provider. Patient is comfortably sitting up on the chair; not in distress. He reports that his bilateral leg pain is significantly better he had bowel movement and is urinating without any issues. Patient to follow-up with his primary care doctor and will have sleep study as outpatient. Subjective Pt seen and examined in room 302. F/u lumbar surgery. Plan is to d/c home today. Denies f/c/s, chest pain, sob, n/v/d, abd pain. +BM today. Review of Systems Review of Systems: All systems reviewed & are unremarkable except as noted in HPI & below Physical Exam Physical Exam: Gen: WD/WN, NAD, A&O x3 HEENT: Normocephalic, atraumatic, conjunctivae moist, sclerae anicteric, mucous membranes moist. Lung: Clear to Auscultation bilaterally, no wheezes/rales/rhonchi Heart: Regular rate, regular rhythm, no murmurs, rubs, or gallops Abdomen: Soft, NT, ND +BS x 4 Extremities: No edema, lumbar dressing CDI catarina drain with serosang Skin: Warm, no rash, negative turgor. Results & Data Results & Data Vital Signs (Past 12 Hours) Vital Signs Temp Pulse Pulse Resp BP BP Pulse Ox 06/17/22 11:14 36.9 C 58 L 46 L 16 121/60 142/84 H 98 06/17/22 07:49 06/17/22 07:34 36.9 C 46 L 16 121/60 98 O2 Del Method 06/17/22 11:14 06/17/22 07:49 Room Air 06/17/22 07:34 Room Air
== END 2022-06-17 12:47 | disposition home or self-care (01) | DRG 455 ==
LOC: ASU 08:47 → 3E 12:30